=== PATIENT | female | born 2000 | race Caucasian/White ===

== ENCOUNTER 2023-12-16 03:18 | Emergency (ER) | payer OTHER ==
[~2023-12-16] VITALS: Ht 170.2 cm; Wt 63.0 kg
[2023-12-16 03:54] VITALS: BP 117/68; PULSE 103; RESP 16; TEMP 98.2
[2023-12-16 03:54] LABS: BASOPHILS % (AUTO) 0.2 % (0.0-2.0); EOSINOPHILS % (AUTO) 0.5 % (1.0-6.0); HEMATOCRIT 40.1 % (36-46); HEMOGLOBIN 13.6 g/dL (12.0-16.0); LYMPHOCYTES # (AUTO) 1.1 K/uL (1.0-4.8); LYMPHOCYTES % (AUTO) 15.2 % (22.0-44.0); MEAN CORPUSCULAR HEMOGLOBIN 30.6 pg (26.0-34.0); MEAN CORPUSCULAR HGB CONC 33.9 G/dL (31.0-37.0); MEAN CORPUSCULAR VOLUME 90 fL (80-100); MONOCYTES % (AUTO) 13.4 % (2.0-9.0); NEUTROPHILS # (AUTO) 5.1 K/uL (1.8-7.7); NEUTROPHILS % (AUTO) 70.7 % (40.0-70.0); PLATELET COUNT (AUTO) 297 K/uL (150-450); RED BLOOD CELL COUNT(AUTO) 4.44 MIL/uL (4.00-5.20); RED CELL DISTRIBUTION WIDTH 12.8 % (11.5-14.5); WHITE BLOOD COUNT (AUTO) 7.1 K/uL (4.5-11.0)
[2023-12-16 04:04] LABS: ANION GAP 11 mmol/L (8-16); CARBON DIOXIDE 25 mmol/L (22-29); CHLORIDE 100 mmol/L (98-107); CREATININE 0.77 mg/dL (0.60-1.30); GLOMERULAR FILTR. RATE CALC > 60 mL/min (>60); GLUCOSE,RANDOM 114 mg/dL (70-110); POTASSIUM 3.2 mmol/L (3.5-5.1); SODIUM SERUM 136 mmol/L (136-145); UREA NITROGEN, BLOOD 8 mg/dL (7-18)
[2023-12-16 04:17] LABS: ALANINE AMINOTRANSFERASE 19 U/L (12-78); ALKALINE PHOSPHATASE 67 U/L (46-116); ASPARTATE AMINOTRANSFERASE 25 U/L (15-37); BILIRUBIN,TOTAL 0.4 mg/dL (0.1-1.0); HCG,QUANTITATIVE < 1 mIU/mL (0-6); LIPASE 40 U/L (16-77)
[2023-12-16] MEDS: ACETAMINOPHEN 500 MG TABLET PO ONE (04:40)
[2023-12-16] MEDS: ONDANSETRON HCL 4 MG/2 ML VIAL IVP ONE (04:40)
[2023-12-16] MEDS: DIPHENOXYLATE/ATROP 2.5-0.025 MG TABLET PO ONE (04:40)
[2023-12-16] MEDS: SODIUM CHLORIDE 0.9% 1,000 ML IV ONE ×2 (04:41)
[2023-12-16] MEDS ORDERED: DIPH-1130 PO (05:01)
[2023-12-16] MEDS ORDERED: ACET-66 PO (05:01)
[2023-12-16] MEDS ORDERED: ONDA-104 PO (05:01)
[2023-12-16 05:35] LABS: APPEARANCE,URINE CLEAR (CLEAR); BILIRUBIN,URINE NEGATIVE (NEGATIVE); COLOR,URINE COLORLESS (YELLOW); GLUCOSE, URINE (UA) NEGATIVE (NEGATIVE); LEUKOCYTE ESTERASE ,URINE NEGATIVE (NEGATIVE); NITRATE,URINE NEGATIVE (NEGATIVE); OCCULT BLOOD,URINE NEGATIVE (NEGATIVE); PROTEIN,URINE NEGATIVE (NEGATIVE); SPECIFIC GRAVITIY, URINE 1.005 (1.003-1.030); UROBILINOGEN,URINE <=1.0 mg/dL (<=1.0)
== END 2023-12-16 05:50 | disposition home or self-care (01) ==
LOC: EMS 03:20
DX: K52.9 Noninfective gastroenteritis and colitis, unspecified (principal); F17.210 Nicotine dependence, cigarettes, uncomplicated
CPT/HCPCS: 99283; 96374; 96361; 80053; 81003; 83690; 84702; 85025; 36415; J2405; J7030